=== PATIENT | female | born 1990 | race Two or more races ===

== ENCOUNTER 2020-06-15 10:09 | Outpatient (CLI) | payer OTHER | END 2020-06-15 10:27 | disposition home or self-care (01) | LOC: EKG 10:09 | PROVIDERS: ATTEND Specialist | DX: K80.10 Calculus of gallbladder with chronic cholecystitis without obstruction (principal); J45.909 Unspecified asthma, uncomplicated; Z01.810 Encounter for preprocedural cardiovascular examination ==

== ENCOUNTER 2020-06-22 04:35 | Day surgery (SDC) | payer OTHER | END 2020-06-22 12:25 | disposition home or self-care (01) | LOC: CIR.AMB 04:35 | PROVIDERS: ATTEND Specialist | DX: K80.10 Calculus of gallbladder with chronic cholecystitis without obstruction (principal); Z20.822 Contact with and (suspected) exposure to COVID-19 ==

== ENCOUNTER 2021-09-28 17:36 | Emergency (ER) | payer OTHER ==
[~2021-09-28] VITALS: Ht 160 cm; Wt 87.1 kg
== END 2021-09-28 21:28 | disposition home or self-care (01) ==
LOC: ER 17:36
DX: J11.1 Influenza due to unidentified influenza virus with other respiratory manifestations (principal); Z20.822 Contact with and (suspected) exposure to COVID-19; Z88.0 Allergy status to penicillin; Z88.8 Allergy status to other drugs, medicaments and biological substances

== ENCOUNTER 2021-12-31 10:30 | Emergency (ER) | payer OTHER ==
[~2021-12-31] VITALS: Ht 160 cm; Wt 81.6 kg
[2021-12-31] MEDS ORDERED: BUDESONIDE0.5 MG/2 M IH (12:47)
[2021-12-31] MEDS ORDERED: ALBUTEROL2.5 MG/3 M IH (12:47)
[2021-12-31] MEDS ORDERED: NASAL MIST126 ML NASAL (12:47)
== END 2021-12-31 12:55 | disposition home or self-care (01) ==
LOC: ER 10:30
DX: J45.901 Unspecified asthma with (acute) exacerbation (principal); Z88.0 Allergy status to penicillin; Z88.8 Allergy status to other drugs, medicaments and biological substances

== ENCOUNTER 2022-05-17 11:58 | Outpatient (CLI) | payer OTHER ==
[~2022-05-17 11:58] MED LIST: ALBUTEROL2.5 MG/3 M IH; BUDESONIDE0.5 MG/2 M IH; NASAL MIST126 ML NASAL
== END 2022-05-17 12:03 | disposition home or self-care (01) ==
LOC: RAD 11:58
DX: M25.561 Pain in right knee (principal)

== ENCOUNTER 2022-07-24 | Outpatient (CLI) | payer OTHER | END 2022-07-24 00:15 | disposition home or self-care (01) | LOC: PPH VACUNA | PROVIDERS: ATTEND Emergency Medicine Pediatric Emergency Medicine | DX: Z23 Encounter for immunization (principal) ==

== ENCOUNTER → 2023-02-06 | Emergency (ER) | payer OTHER ==
[~2023-02-06] VITALS: Ht 160 cm; Wt 82.6 kg
[2023-02-06 12:18] LABS: HEMATOCRIT 40.9 % (36.0-45.00); HEMOGLOBIN 13.7 g/dL (12.0-15.00); MEAN CELL VOLUME 79.5 fL (80.00-100.00); MEAN CORPUSCULAR HEMOGLOBIN 26.7 pg (27.00-32.0); MEAN CORPUSCULAR HGB CONC 33.6 g/dl (32.0-36.0); PLATELET COUNT 297 K/uL (150-450); RED BLOOD COUNT 5.14 M/uL (4.00-6.00); RED CELL DISTRIBUTION WIDTH 14.3 % (11.5-14.5)
[2023-02-06 12:48] LABS: ALBUMIN 3.9 gm/dL (3.4-5.0); BILIRUBIN TOTAL 1.21 mg/dL (0.3-1.2); CREATININE SERUM 0.74 mg/dL (0.55-1.02); GFR 92.15; GLOBULINA 4.6 G/DL (2.4-3.5); POTASSIUM 4.02 mEq/L (3.5-5.1); TOTAL PROTEIN 8.5 gm/dL (6.4-8.2)
[2023-02-06 17:07] LABS: HEMATOCRIT 39.1 % (36.0-45.00); HEMOGLOBIN 13.4 g/dL (12.0-15.00); MEAN CELL VOLUME 79.8 fL (80.00-100.00); MEAN CORPUSCULAR HEMOGLOBIN 27.4 pg (27.00-32.0); MEAN CORPUSCULAR HGB CONC 34.3 g/dl (32.0-36.0); PLATELET COUNT 284 K/uL (150-450); RED BLOOD COUNT 4.91 M/uL (4.00-6.00); RED CELL DISTRIBUTION WIDTH 14.4 % (11.5-14.5)
== END | disposition home or self-care (01) ==
LOC: ER 10:33
PROVIDERS: General Practice
DX: K52.9 Noninfective gastroenteritis and colitis, unspecified (principal); Z20.822 Contact with and (suspected) exposure to COVID-19; Z88.6 Allergy status to analgesic agent; Z88.0 Allergy status to penicillin

== ENCOUNTER 2023-04-09 11:15 | Inpatient (IN) | payer OTHER ==
[~2023-04-09] VITALS: Ht 160 cm; Wt 83.9 kg
[2023-04-09 14:59] LABS: HEMOGLOBIN 12.4 g/dL (12.0-15.00); MEAN CELL VOLUME 81.7 fL (80.00-100.00); MEAN CORPUSCULAR HEMOGLOBIN 27.3 pg (27.00-32.0); MEAN CORPUSCULAR HGB CONC 33.4 g/dl (32.0-36.0); PLATELET COUNT 331 K/uL (150-450); RED BLOOD COUNT 4.53 M/uL (4.00-6.00); RED CELL DISTRIBUTION WIDTH 13.9 % (11.5-14.5)
[2023-04-09 15:34] LABS: ALBUMIN 4.2 gm/dL (3.4-5.0); CALCIUM 8.8 mg/dL (8.5-10.1); CREATININE SERUM 0.52 mg/dL (0.55-1.02); GFR 138.46; GLOBULINA 3.6 G/DL (2.4-3.5); POTASSIUM 3.48 mEq/L (3.5-5.1); TOTAL PROTEIN 7.8 gm/dL (6.4-8.2)
[2023-04-09 16:39] LABS: URINE APPEARANCE Cloudy; URINE BILIRRUBIN Negative (NEGATIVE); URINE BLOOD Moderate; URINE COLOR Yellow; URINE GLUCOSE Negative (NEGATIVE); URINE LEUKOCYTE Negative; URINE NITRATE Negative; URINE PROTEIN Trace (NEGATIVE)
[2023-04-09 16:42] LABS: URINE BACTERIA 25.1 uL (0.0-1933); URINE EPITHELIAL CELLS 9.2 uL (0.0-38.8); URINE RBC 84.3 uL (0.0-20.8); URINE WBC 8.5 uL (0.0-23.2)
[2023-04-09 19:32] LABS: INR 1.01; PARTIAL THROMBOPLASTIN TIME 24.2 SECONDS (22.0-34.0); PROTHROMBIN TIME 10.6 SECONDS (9.0-11.5)
[2023-04-09 20:25] LABS: HEMATOCRIT 32.1 % (36.0-45.00); HEMOGLOBIN 10.9 g/dL (12.0-15.00); MEAN CELL VOLUME 80.5 fL (80.00-100.00); MEAN CORPUSCULAR HEMOGLOBIN 27.3 pg (27.00-32.0); MEAN CORPUSCULAR HGB CONC 33.9 g/dl (32.0-36.0); PLATELET COUNT 317 K/uL (150-450); RED BLOOD COUNT 3.99 M/uL (4.00-6.00); RED CELL DISTRIBUTION WIDTH 14.2 % (11.5-14.5)
[2023-04-09 23:09] LABS: HEMATOCRIT 24.7 % (36.0-45.00); HEMOGLOBIN 8.3 g/dL (12.0-15.00); MEAN CELL VOLUME 81.2 fL (80.00-100.00); MEAN CORPUSCULAR HEMOGLOBIN 27.3 pg (27.00-32.0); MEAN CORPUSCULAR HGB CONC 33.6 g/dl (32.0-36.0); PLATELET COUNT 247 K/uL (150-450); RED BLOOD COUNT 3.04 M/uL (4.00-6.00); RED CELL DISTRIBUTION WIDTH 14.1 % (11.5-14.5)
[2023-04-10 07:01] LABS: HEMATOCRIT 23.7 % (36.0-45.00); MEAN CELL VOLUME 82.3 fL (80.00-100.00); MEAN CORPUSCULAR HGB CONC 34.7 g/dl (32.0-36.0); PLATELET COUNT 224 K/uL (150-450); RED BLOOD COUNT 2.88 M/uL (4.00-6.00)
[2023-04-10 07:12] LABS: HEMOGLOBIN 8.2 g/dL (12.0-15.00); MEAN CORPUSCULAR HEMOGLOBIN 28.4 pg (27.00-32.0)
[2023-04-10 20:45] LABS: HEMATOCRIT 31.4 % (36.0-45.00); HEMOGLOBIN 10.8 g/dL (12.0-15.00); MEAN CELL VOLUME 81.8 fL (80.00-100.00); MEAN CORPUSCULAR HEMOGLOBIN 28.1 pg (27.00-32.0); MEAN CORPUSCULAR HGB CONC 34.4 g/dl (32.0-36.0); PLATELET COUNT 207 K/uL (150-450); RED BLOOD COUNT 3.83 M/uL (4.00-6.00); RED CELL DISTRIBUTION WIDTH 14.8 % (11.5-14.5)
[2023-04-11] MEDS ORDERED: Tylenol #3 PO (08:43)
[2023-04-11] MEDS ORDERED: NAPR500T14 PO (08:43)
== END 2023-04-11 09:42 | disposition home or self-care (01) | DRG 817 ==
LOC: ER 11:16 → O/R 20:14 → SEC-K 20:14 → OB/GYN 20:14 → O/R 21:19 → OB/GYN 04-10 00:18
PROVIDERS: General Practice; ADMIT Student in an Organized Health Care Education/Training Program; ATTEND Student in an Organized Health Care Education/Training Program
PROC: 10D24ZZ Extraction of Products of Conception, Ectopic, Percutaneous Endoscopic Approach (ICD-10-PCS; 2023-04-09)
PROC: 0UT74ZZ Resection of Bilateral Fallopian Tubes, Percutaneous Endoscopic Approach (ICD-10-PCS; 2023-04-09)
PROC: 0WCG4ZZ Extirpation of Matter from Peritoneal Cavity, Percutaneous Endoscopic Approach (ICD-10-PCS; principal; 2023-04-09 20:30)
DX: O00.102 Left tubal pregnancy without intrauterine pregnancy (principal); K66.1 Hemoperitoneum; Z20.822 Contact with and (suspected) exposure to COVID-19

== ENCOUNTER 2023-11-16 14:28 | Emergency (ER) | payer OTHER ==
[~2023-11-16] VITALS: Ht 160 cm; Wt 86.2 kg
[~2023-11-16 14:28] MED LIST changes: +INTESTINEX680 M1 PO; +METRONIDAZOLE500 MG PO; +NAPR500T14 PO; +Tylenol #3 PO
[2023-11-16 16:33] LABS: HEMATOCRIT 39.8 % (36.0-45.00); HEMOGLOBIN 13.1 g/dL (12.0-15.00); MEAN CELL VOLUME 81.5 fL (80.00-100.00); MEAN CORPUSCULAR HEMOGLOBIN 26.8 pg (27.00-32.0); MEAN CORPUSCULAR HGB CONC 32.9 g/dl (32.0-36.0); PLATELET COUNT 311 K/uL (150-450); RED BLOOD COUNT 4.89 M/uL (4.00-6.00); RED CELL DISTRIBUTION WIDTH 14.1 % (11.5-14.5)
[2023-11-16 17:47] LABS: PH,URINE 7.5 (5.0-8.0); URINE APPEARANCE Clear; URINE BILIRRUBIN Negative (NEGATIVE); URINE BLOOD Moderate; URINE COLOR Yellow; URINE GLUCOSE Negative (NEGATIVE); URINE KETONE Negative (NEGATIVE); URINE LEUKOCYTE Negative; URINE NITRATE Negative; URINE PROTEIN Negative (NEGATIVE); URINE UROBILINOGEN 0.2 E.U./dl
[2023-11-16 17:48] LABS: URINE BACTERIA 311.1 uL (0.0-1933); URINE EPITHELIAL CELLS 7.1 uL (0.0-38.8); URINE RBC 126.7 uL (0.0-20.8); URINE WBC 11.7 uL (0.0-23.2)
[2023-11-16 17:52] LABS: URINE CAST 0.15 uL (0.0-1.40)
[2023-11-16] MEDS ORDERED: KETOROLAC TROMETHAMINE 60 MG VIAL IM ONE ×2 (18:41→18:45)
== END 2023-11-16 18:45 | disposition home or self-care (01) ==
LOC: ER 14:29
PROVIDERS: Nurse Practitioner Family
DX: N83.01 Follicular cyst of right ovary (principal); N83.02 Follicular cyst of left ovary; R10.2 Pelvic and perineal pain; Z88.0 Allergy status to penicillin; Z88.8 Allergy status to other drugs, medicaments and biological substances

== ENCOUNTER 2024-01-21 03:34 | Emergency (ER) | payer OTHER ==
[~2024-01-21] VITALS: Ht 160 cm; Wt 68.0 kg
[2024-01-21] MEDS ORDERED: KETOROLAC TROMETHAMINE 30 MG VIAL IV STA (05:16)
[2024-01-21] MEDS ORDERED: MECLIZINE HCL 25 MG TABLET PO STA (05:19)
[2024-01-21 06:17] LABS: URINE APPEARANCE Clear; URINE BILIRRUBIN Negative (NEGATIVE); URINE BLOOD Large; URINE COLOR Yellow; URINE GLUCOSE Negative (NEGATIVE); URINE KETONE Negative (NEGATIVE); URINE LEUKOCYTE Negative; URINE NITRATE Negative; URINE PROTEIN Negative (NEGATIVE); URINE UROBILINOGEN 0.2 E.U./dl
[2024-01-21 06:18] LABS: HEMATOCRIT 37.1 % (36.0-45.00); HEMOGLOBIN 12.6 g/dL (12.0-15.00); MEAN CELL VOLUME 80.8 fL (80.00-100.00); MEAN CORPUSCULAR HEMOGLOBIN 27.4 pg (27.00-32.0); MEAN CORPUSCULAR HGB CONC 33.9 g/dl (32.0-36.0); PLATELET COUNT 299 K/uL (150-450); RED BLOOD COUNT 4.59 M/uL (4.00-6.00); RED CELL DISTRIBUTION WIDTH 13.5 % (11.5-14.5)
[2024-01-21 06:21] LABS: URINE BACTERIA 56.6 uL (0.0-1933); URINE WBC 11.5 uL (0.0-23.2)
[2024-01-21 06:28] LABS: URINE CAST 0.15 uL (0.0-1.40)
[2024-01-21 07:30] LABS: ALBUMIN 4.1 gm/dL (3.4-5.0); ALKALINE PHOSPHATASE 79 U/L (50-136); ALT/SGPT 26 U/L (12-78); ANION GAP 11 (10.0-20.0); AST/SGOT 15 U/L (15-37); BILIRUBIN TOTAL 0.69 mg/dL (0.3-1.2); BLOOD UREA NITROGEN 11 mg/dL (7-18); BUN CREA RATIO 17 (7.0-25.0); CALCIUM 8.8 mg/dL (8.5-10.1); CARBON DIOXIDE 26 mEq/L (21-32); CHLORIDE 109 mmol/L (98-107); CREATININE SERUM 0.65 mg/dL (0.55-1.02); GFR 106.31; GLOBULINA 3.5 G/DL (2.4-3.5); GLUCOSE FASTING 102 mg/dL (65-100); OSMOLALITY SERUM 283 MOSM/KG (275-295); POTASSIUM 3.59 mEq/L (3.5-5.1); SODIUM 142 mmol/L (136-145); TOTAL PROTEIN 7.6 gm/dL (6.4-8.2)
[2024-01-21 07:39] LABS: HCG QUANTITATIVE < 1 mUI/mL (1-3)
== END 2024-01-21 13:54 | disposition home or self-care (01) ==
LOC: ER 03:36
PROVIDERS: General Practice
DX: R42 Dizziness and giddiness (principal); R51.9 Headache, unspecified; Z88.0 Allergy status to penicillin; Z88.6 Allergy status to analgesic agent; B34.9 Viral infection, unspecified; Z20.822 Contact with and (suspected) exposure to COVID-19